=== PATIENT | male | born 1980 | race Caucasian/White ===

== ENCOUNTER → 2018-03-15 | Emergency (ER) | payer MEDICAID ==
[~2018-03-15] VITALS: Ht 167.6 cm; Wt 93.6 kg
[~2018-03-15] MED LIST: diphenhydrAMINE 50 mg/ml inj IV ONE; metoclopramide 5 mg/ml inj IV ONE; normal saline 1000ML IV soln IVB ONE
[2018-03-15 10:08] VITALS: BP 162/79
[2018-03-15 10:38] LABS: BASOPHILS # (AUTO) 0.1 X10'3 (0-0.2); BASOPHILS % (AUTO) 1.4 % (0-1); EOSINOPHILS # (AUTO) 0.1 X10'3 (0-0.9); EOSINOPHILS % (AUTO) 1.5 % (0-6); HEMATOCRIT 41.3 % (42.0-52.0); HEMOGLOBIN 13.9 g/dl (14.0-17.9); LYMPHOCYTES # (AUTO) 2.3 X10'3 (1.1-4.8); MEAN CORPUSCULAR HEMOGLOBIN 27.1 PG (27.0-31.0); MEAN CORPUSCULAR HGB CONC 33.6 % (33.0-36.5); MEAN CORPUSCULAR VOLUME 80.6 FL (78-98); MEAN PLATELET VOLUME 7.8 FL (7.4-10.4); MONOCYTES # (AUTO) 0.7 X10'3 (0-0.9); MONOCYTES % (AUTO) 10.7 % (2-12); NEUTROPHILS # (AUTO) 2.9 X10'3 (1.8-7.7); NEUTROPHILS % (AUTO) 48.4 % (42-75); PLATELET COUNT 212 X10'3 (140-440); RED BLOOD COUNT 5.12 X10'6 (4.70-6.10); RED CELL DISTRIBUTION WIDTH 14.6 % (11.5-14.5); WHITE BLOOD COUNT 6.1 X10'3 (4.5-11.0)
[2018-03-15 10:45] LABS: PROTHROMBIN TIME 10.1 SECONDS (9.0-12.0)
[2018-03-15 10:52] LABS: ALANINE AMINOTRANSFERASE 38 U/L (12-78); ALBUMIN 3.7 G/DL (3.4-5.0); ALKALINE PHOSPHATASE 64 IU/L (46-116); AMYLASE 73 U/L (25-115); ANION GAP 11 (8-16); ASPARTATE AMINO TRANSFERASE 21 U/L (10-37); BILIRUBIN,TOTAL 0.2 MG/DL (0.1-1.0); BLOOD UREA NITROGEN 9 MG/DL (7-18); BUN/CREATININE RATIO 7.5 (5.4-32.0); CALCIUM 8.3 MG/DL (8.5-10.1); CHLORIDE 109 MMOL/L (99-107); GLUCOSE 96 MG/DL (70-104); LIPASE 186 U/L (73-393); POTASSIUM 3.7 MMOL/L (3.5-5.1); SODIUM 144 MMOL/L (135-145); TOTAL CARBON DIOXIDE 23.6 MMOL/L (24-32); TOTAL PROTEIN 7.3 G/DL (6.4-8.2); eGFR 67 ML/MIN
== END | disposition left against medical advice (07) ==
LOC: ER 09:43
DX: R10.13 Epigastric pain (principal); R11.10 Vomiting, unspecified; J45.909 Unspecified asthma, uncomplicated; K21.9 Gastro-esophageal reflux disease without esophagitis
CPT/HCPCS: 36415; 80053; 82150; 83690; 85025; 85610; 99284; J7030

== ENCOUNTER 2025-06-18 12:38 | Inpatient (IN) | payer MEDICAID ==
[~2025-06-18] VITALS: Ht 167.6 cm; Wt 90.9 kg
--- NOTE | 2025-06-18 13:03 | Physician Documentation ---
History of Present Illness General Chief Complaint: Bloody Emesis Stated Complaint: GI ISSUES Time Seen by MD: 12:48 History of Present Illness Initial Comments The patient is a 44-year-old male transferred here from [facility] in [place] for GI bleeding. The patient lives in [place] and was visiting [place]. He had epigastric pain last night in induced vomiting by sticking his finger down his throat thinking this would help the pain. He vomited black material. He has also been having melena for the past day or two. The patient has had melena in the past and he has been having epigastric pain on and off for at least 20 years. He was told by providers that he needed an EGD but he never got this. He does take pantoprazole when he remembers to take it. He is also on amlodipine for blood pressure and ropinirole all for restless legs. He reports that he used to be a heavy drinker but now drinks only occasionally. He reports chronic anemia and was advised to take iron but he has not been taking it. He has had occasional coffee-ground and reddish vomitus over the years. Medication Reconciliation Allergies: Coded Allergies: No Known Allergies (Unverified , 01/08/16) Past Medical History Past Medical History: Asthma, GERD, Hernia Past Surgical History: noncontributory Other Past Family History: NONCONTRIBUTORY Alcohol Use: None Drug Use: none Lives In: Home Review of Systems ROS Constitutional: Denies chills, fatigue, fever, weight gain or weight loss. HEENT: Denies hearing loss, sinus pressure or visual changes. Respiratory: Denies cough, shortness of breath or wheezing. Cardiovascular: Denies chest pain, pain while walking (claudication), edema or palpitations. Gastrointestinal: Epigastric pain, coffee-ground vomitus and melena. Genitourinary: Denies painful urination (dysuria), excessive amount of urine (polyuria) or urinary frequency. Metabolic/Endocrine: Denies cold intolerance, heat intolerance, excessive thirst (polydipsia) or excessive hunger (polyphagia). Neurological: Denies dizziness, extremity numbness, extremity weakness, headaches, seizures or tremors. Psychiatric: Denies anxiety or depression. Integumentary: Denies breast discharge, breast lump, hives, mole change(s), rash or skin lesion. Musculoskeletal: Denies back pain, joint pain, joint swelling or neck pain. Hematologic: Denies easily bleeding, easily bruises, lymphedema or issues with blood clots. Immunologic: Denies food allergies or seasonal allergies. Physical Exam Physical Exam Vital Signs: Temperature: 98.0, Heart Rate: 75, Respiratory Rate: 15, BP: 111/80, Pulse Oximetry: 96, Weight: 90.910 Oxygen Flow Rate: 0 Physical Exam Physical Exam Vitals and nursing note reviewed. Constitutional: General: Patient is awake, alert, oriented x 4 in no acute distress and well appearing. Speech is clear and lucid. Appearance: Normal appearance. Patient is not ill-appearing, toxic-appearing or diaphoretic. HENT: Head: Normocephalic and atraumatic. Mouth/Throat: Mouth: Mucous membranes are moist. Pharynx: Oropharynx is clear. Eyes: General: No scleral icterus. Extraocular Movements: Extraocular movements intact. Pupils: Pupils are equal, round, and reactive to light. Neck: Supple, no Kernig or Brudzinski sign. Cardiovascular: Rate and Rhythm: Normal rate and regular rhythm. Heart sounds: No murmur heard. Pulmonary: Effort: No respiratory distress. Breath sounds: No wheezing, rhonchi or rales. Abdominal: General: There is no distension. Palpations: There is no fluid wave, hepatomegaly or mass. Tenderness: Epigastric tenderness without guarding or rebound. Musculoskeletal: General: No swelling or deformity. Skin: Coloration: Skin is not jaundiced. Findings: No erythema or rash. Neurological: Mental Status: Patient is alert. Progress Results/Orders Results/Orders Orders - ZOYA SCHUMACHER MD Drug Screen, Urine (06/18/25 12:56) Page Hospitalist (06/18/25 14:31) Completed Orders - ZOYA SCHUMACHER MD CMP (06/18/25 12:56) Cbc/Diff (06/18/25 12:56) Lipase (06/18/25 12:56) MG (06/18/25 12:56) Type And Screen (06/18/25 12:56) Pt Inr (06/18/25 12:56) Hs Troponin I W Calculations (06/18/25 12:56) Ethanol (06/18/25 12:56) Man Diff (06/18/25 13:12) Vital Signs 06/18/25 06/18/25 06/18/25 06/18/25 12:40 13:01 13:44 14:36 Temp 98.0 98.0 98.0 Pulse 75 104 68 Resp 15 16 15 B/P (MAP) 111/80 94/65 (75) 138/78 (98) Pulse Ox 96 99 97 O2 Flow Rate 0 0 0 Laboratory Tests Test 06/18/25 13:12 White Blood Count 6.6 Red Blood Count 4.29 L Hemoglobin 9.3 L Hematocrit 29.4 L Mean Corpuscular Volume 68.5 L Mean Corpuscular Hemoglobin 21.7 L Mean Corpuscular Hemoglobin Concent 31.7 L Red Cell Distribution Width 18.0 H Platelet Count 304 Mean Platelet Volume 7.5 Neutrophils (%) (Auto) 55.9 Lymphocytes (%) (Auto) 32.2 Monocytes (%) (Auto) 9.0 Eosinophils (%) (Auto) 1.7 Basophils (%) (Auto) 1.2 H Neutrophils # (Auto) 3.7 Lymphocytes # (Auto) 2.1 Monocytes # (Auto) 0.6 Eosinophils # (Auto) 0.1 Basophils # (Auto) 0.1 CBC Comment Differential Total Cells Counted 100 Neutrophils % (Manual) 56.0 Lymphocytes % (Manual) 34.0 Monocytes % (Manual) 8.0 Eosinophils % (Manual) 2.0 Platelet Estimate Normal Red Blood Cell Morphology Perf Polychromasia Few Hypochromasia 2+ Basophilic Stippling Anisocytosis 1+ Microcytosis 2+ Elliptocytes Prothrombin Time 10.7 INR International Normalized Ratio 1.0 Coagulation Comments Sodium Level 141 Potassium Level 5.1 Chloride Level 111 H Carbon Dioxide Level 23.9 L Anion Gap 6 L Blood Urea Nitrogen 33 H Creatinine 0.88 Estimated GFR/1.73 m2 > 90 BUN/Creatinine Ratio 37.5 H Glucose Level 102 Calcium Level 7.8 L Magnesium Level 2.8 H Total Bilirubin 0.3 Aspartate Amino Transf (AST/SGOT) 13 Alanine Aminotransferase (ALT/SGPT) 14 Alkaline Phosphatase 51 Troponin I High Sensitivity 7 Total Protein 6.5 Albumin 3.3 L Globulin 3.2 Albumin/Globulin Ratio 1.0 L Lipase 44 Chemistry Comments Ethyl Alcohol Level < 10 Medical Decision Making Findings This 44-year-old male is transferred here from [facility] with coffee-ground vomitus and melanotic stools since last night. His hemoglobin is 9.3. Vital signs are stable. I will get him admitted for further workup. Departure Disposition: ADMITTED INPATIENT Admitted to Inpatient Unit: to hospitalist Impression: Primary Impression: Hematemesis Condition: Stable Referrals: NO PRIMARY CARE PROVIDER (PCP) Signature Scribe Signature: . Attestation: . ZOYA SCHUMACHER MD Jun 18, 2025 13:03
[2025-06-18 13:34] LABS: MEAN PLATELET VOLUME 7.5 FL (7.4-10.4); RED CELL DISTRIBUTION WIDTH 18.0 % (11.5-14.5)
[2025-06-18 13:44] LABS: INR 1.0 INR
[2025-06-18 13:51] LABS: CREATININE 0.88 MG/DL (0.60-1.10); ETHANOL < 10 MG/DL (<10); TOTAL CARBON DIOXIDE 23.9 MMOL/L (24-32); eCRCL 95 ML/MIN; eGFR > 90 ML/MIN
[2025-06-18 14:32] LABS: EOSINOPHILS % (MANUAL) 2.0 % (0-6); LYMPHOCYTES % (MANUAL) 34.0 % (21-51); MONOCYTES % (MANUAL) 8.0 % (2-12); NEUTROPHILS % (MANUAL) 56.0 % (42-75)
[2025-06-18 14:33] LABS: PLATELET ESTIMATE NORMAL
[2025-06-18] MEDS ORDERED: potassium Cl 40MEQ/1/2NS 520ml 520 ML IV PRN (17:05)
[2025-06-18] MEDS ORDERED: magnesium sulf-water 2g/50mL 50 ML IV PRN (17:05)
[2025-06-18] MEDS ORDERED: mag hydrox/Alum hydrox/simeth 30ml oral suspension PO PRN (17:05)
[2025-06-18] MEDS ORDERED: magnesium sulf-water 4G/100mL 100 ML IV PRN (17:05)
[2025-06-18] MEDS ORDERED: potassium Cl 20 mEq SR tablet PO PRN ×2 (17:05)
[2025-06-18] MEDS ORDERED: magnesium hydroxide 30ml (MOM) UD suspension PO PRN (17:05)
[2025-06-18] MEDS ORDERED: ondansetron/PF 4mg/2ml inj IV PRN (17:05)
[2025-06-18] MEDS ORDERED: magnesium Cl slow-release 64mg tablet PO PRN (17:05)
--- NOTE | 2025-06-18 17:32 | HISTORY AND PHYSICAL-Residence ---
History & Physical Providers to CC Resident Creating Document: MAHI MADERA GREER, RES ~ History of Present Illness Reason for Admit\Complaint: Melena, coffee-ground emesis History of Present Illness A 44 years old male patient transferred from [facility] for evaluation of GI bleed. Patient reports that he has mild epigastric pain from yesterday evening and he induced vomiting by sticking his fingers down into his throat thinking that could relieve the pain. He had 1 episode of coffee ground colored vomiting. He also endorses that he had black tarry stools from the past 2 days. Patient reports that he has mild epigastric pain, black tarry stools, coffee-ground vomiting on and off for at least 20 years. Patient denies abdominal distention, heartburn, indigestion, acid reflux, nausea, constipation, diarrhea, dizziness, chest pain, syncope, shortness of breath. Patient never had EGD in the past. Allergies: Coded Allergies: No Known Allergies (Unverified , 01/08/16) Home Medications Home Medications Active Past Medical History Past Medical History GERD Restless leg syndrome Hypertension Past Surgical History Surgical History Comment No past surgical history Family History Family History: Patient reports no known family medical history. Past Social History Social History Comment Nonsmoker Patient was heavy drinker previously 10 years back, now he drinks beer occasionally like once in a month. His last drink was 1 glass of beer 2 days ago. Denies any recreational drug use Independent of ADLs. No primary care provider Alcohol Use: None Drug Use: None Lives In: Home ROS ROS Constitutional: No fever, chills, dizziness, weight gain or loss, night sweats Eyes: No pain, erythema, discharge, blurring of vision ENT: No sore throat, epistaxis, tinnitus Cardiovascular:No chest pain, palpitations, syncope, lower extremity edema, paroxysmal nocturnal dyspnea Respiratory: No Shortness of breath and cough, No hemoptysis. Gastrointestinal: Reports Epigastric pain, coffee-ground vomitus and melena. Normal appetite. No constipation,diarrhea, hematemesis, Musculoskeletal: No swelling or edema of extremities. Integumentary: No change in skin, hair, nails. No swelling, bruising, abrasions Neurologic: No weakness,No headache, neck pain, numbness or tingling of the extremities, Psychiatric: No delusions, depression, loss of interest in normal activity or change in sleep pattern, hallucinations, suicidal ideations Endocrine: No fatigue, no weakness. polydipsia, polyuria, change in appetite, heat or cold intolerance, sweating, dry skin Hematological: No bleeding, petechiae, bruising Allergies: No asthma or urticaria Exam Vitals: Vital Signs Date Time Temp Pulse Resp B/P (MAP) Pulse Ox O2 Delivery O2 Flow Rate FiO2 06/18/25 14:36 98.0 68 15 138/78 (98) 97 0 General: Awake , alert and oriented to time,place, person,not in distress HEENT: Atraumatic, normocephalic, PERRLA, EOMI, anicteric sclera ; pink conjunctiva, moist mucos membranes Neck: Trachea midline. Supple, normal range of motion, no JVD, no lymphadenopathy Chest and Respiratory: Equal breath sounds bilaterally, no tachypnea, wheezing, ronchi,rubs .Chest wall is symmetric and without deformity. Cardiac: S1, S2 heard,Regular rate and rhythm, no murmurs heard. Abdomen: Soft, mild epigastric tenderness, No guarding or rigidity, Wynne's sign negative. normal bowel sounds x4 quadrant, no hepatosplenomegaly MSK: Range of motion of all extremities are normal. There is no joint pain or joint swelling or joint erythema. There is no muscle pain or tenderness or swelling. Extremities: warm, well-perfused, No cyanosis, clubbing, 2+ pulses felt Neurological: Speech is clear, alert, and oriented x 4. No sensory or motor deficits. Cranial nerves II-XII intact. Skin: Warm and dry Psychiatry: Affect and mood are normal Diagnostic Data Last Recorded Lab Results: 06/18/25 1312 06/18/25 1312 Diagnostic Data: Laboratory Tests Test 06/18/25 13:12 Prothrombin Time 10.7 SECONDS (9.0-12.0) INR International Normalized Ratio 1.0 INR Coagulation Comments Advance Care Planning Advanced Care plannin - 30 Minutes Additional Plan Hematemesis and melena possibly due to upper GI bleed Microcytic hypochromic anemia History of GERD Patient had coffee-ground vomiting and melena last night. H&H are 9.3 and 29.4, MCV 68.5, MCH 31.7 Patient is hemodynamically stable Coagulation profile is within normal limits Plan: Transfuse PRBC if hemoglobin level is less than 7 Monitor H&H q.8h IV Zofran 4 mg p.r.n. Started on IV Protonix drip NPO after midnight Dr. Walton, the on-call wafer polishing worker was consulted. Awaiting recommendations. Hypertension Blood pressure are normal Follow up with outpatient management Restless legs syndrome Follow up with outpatient management Pending home med reconciliation Code status: Full code DVT prophylaxis : SCDs GI prophylaxis: IV Protonix Nutrition: Regular diet, NPO after midnight Line/tube: PIV Analgesia/sedation: Morphine p.r.n. Disposition: Patient was admitted for the evaluation of GI bleed. Dr. Walton, the on-call wafer polishing worker was consulted. Awaiting recommendations. Resident attestation The above note has been reviewed and supervised by a senior resident PGY2/PGY3 Patient was seen, examined and discussed with the attending physician Marlee Madera MD Internal Medicine Resident, PGY 1 I spent a total of 17 minutes on reviewing various resuscitative measures/ ACP with the patient at the time of admission. The patient has decided on a full code status. Date of Service: Jun 18, 2025 Billing Provider: KALYN LOFTON DO Common Visit Codes: [id number] INP/OBS CARE (HIGH) Secondary Visit Codes: [id number] CARE PLAN 30 MINUTES MAHI MADERA, RES Jun 18, 2025 17:32 KALYN LOFTON DO Jun 18, 2025 18:42
[2025-06-18 18:00] VITALS: BP_SYST 118; BP_SYST 127; BP_DIAS 79; BP_DIAS 85; PULSE 102; PULSE 97; RESP 18; RESP 22; TEMP 100.2; TEMP 98.5; O2SAT 93; O2SAT 96
[2025-06-18] MEDS ORDERED: morphine 4 MG/ML inj SYRINge IV PRN ×2 (18:08→18:25)
[2025-06-18 18:14] VITALS: RESP 18
[2025-06-18] MEDS: morphine 4 MG/ML inj SYRINge IV PRN ×2 (18:33→23:17)
[2025-06-18 19:15] LABS: MEAN PLATELET VOLUME 7.1 FL (7.4-10.4); RED CELL DISTRIBUTION WIDTH 17.9 % (11.5-14.5)
[2025-06-18 19:29] LABS: APTT 23 SECONDS (22-32); INR 1.0 INR
[2025-06-18 19:44] LABS: PHOSPHORUS 2.9 MG/DL (2.3-4.5)
[2025-06-18 19:47] LABS: PRO BRAIN NATRIURETIC PEPTIDE < 30 PG/ML (0-125)
[2025-06-18 20:00] VITALS: RESP 18; O2SAT 99
[2025-06-18] MEDS: K and/or MAG REPLACEMENT MC SCH (21:15)
[2025-06-18] MEDS: docusate sod 100mg capsule PO SCH (21:16)
[2025-06-18] MEDS: pantoprazole 40MG/NS 100ML BAG 100 ML IV SCH (21:19)
[2025-06-18 22:00] VITALS: BP 131/73; PULSE 74; RESP 18; TEMP 98.8; O2SAT 99
[2025-06-18] MEDS ORDERED: HYDROcodone/acetaminophen 10/325mg tab PO PRN (22:45)
[2025-06-19] VITALS (15 sets, daily range): BP systolic 104–136; BP diastolic 60–85; PULSE 16–81; RESP 9–20; TEMP 97.4–98.6; O2SAT 93–99
[2025-06-19 05:46] LABS: MEAN PLATELET VOLUME 7.8 FL (7.4-10.4); RED CELL DISTRIBUTION WIDTH 17.8 % (11.5-14.5)
[2025-06-19 06:05] LABS: CHOL/HDL RATIO 3.4 (0.00-4.99); CREATININE 0.92 MG/DL (0.60-1.10); LDL CHOLESTEROL 57 MG/DL (50-100); TOTAL CARBON DIOXIDE 24.1 MMOL/L (24-32); eCRCL 91 ML/MIN; eGFR 89 ML/MIN
[2025-06-19] MEDS ORDERED: ROPI0.2544 PO (08:00)
[2025-06-19] MEDS ORDERED: LIDOcaine 2% (20mg/ml) 5ml vial ONE ×2 (09:18→13:10)
[2025-06-19 10:09] LABS: LEUKOCYTE ESTERASE ,URINE NEGATIVE (Neg); NITRITES, URINE NEGATIVE (Neg); OCCULT BLOOD,URINE NEGATIVE (Neg)
[2025-06-19 10:12] LABS: UA COLLECTION TYPE NON-SPECIFIED
[2025-06-19 10:31] LABS: MEAN PLATELET VOLUME 7.3 FL (7.4-10.4); RED CELL DISTRIBUTION WIDTH 18.1 % (11.5-14.5)
[2025-06-19 10:36] LABS: URINE AMPHETAMINE SCREEN POSITIVE (Neg); URINE BARBITUATE SCREEN NEGATIVE (Neg); URINE BENZODIAZEPINES SCREEN NEGATIVE (Neg); URINE CANNABINOID SCREEN NEGATIVE (Neg); URINE COCAINE SCREEN NEGATIVE (Neg); URINE METHADONE SCREEN NEGATIVE (Neg); URINE OPIATE SCREEN POSITIVE (Neg); URINE PHENCYCLIDINE SCREEN NEGATIVE (Neg)
[2025-06-19] MEDS ORDERED: midazolam 1 mg/ML 2ml injection ONE (13:01)
[2025-06-19] MEDS ORDERED: fentaNYL/PF 50MCG/1 ML 2ML syringe ONE (13:01)
[2025-06-19] MEDS ORDERED: propofol inj 20 ML IV ONE (13:10)
--- NOTE | 2025-06-19 16:52 | PROGRESS NOTE- Residence ---
Progress Note - Resident Providers to CC Resident Creating Document: MAHI MADERA RES ~ Antibiotic Timeout Antibiotic Ordered?: No Subjective Patient was seen and examined at bedside. Patient complaints of numbness in both hands. Patient denies nausea, vomiting, abdominal distention, indigestion. No acute overnight symptoms noted. Patient underwent EGD today afternoon. Objective Vital Signs Date Time Temp Pulse Resp B/P (MAP) Pulse Ox O2 Delivery O2 Flow Rate FiO2 06/19/25 14:00 67 12 110/75 (87) 97 Room Air 0.0 06/19/25 13:19 98.2 Result Diagram: 06/19/25 1016 06/19/25 0440 Awake , alert and oriented to time,place, person,not in distress HEENT: Atraumatic, normocephalic, PERRLA, EOMI, anicteric sclera ; pink conjunctiva, moist mucos membranes Neck: Trachea midline. Supple, normal range of motion, no JVD, no lymphadenopathy Chest and Respiratory: Equal breath sounds bilaterally, no tachypnea, wheezing, ronchi,rubs .Chest wall is symmetric and without deformity. Cardiac: S1, S2 heard,Regular rate and rhythm, no murmurs heard. Abdomen: Soft, No tenderness, No guarding or rigidity, Wynne's sign negative. normal bowel sounds x4 quadrant, no hepatosplenomegaly MSK: Range of motion of all extremities are normal. There is no joint pain or joint swelling or joint erythema. There is no muscle pain or tenderness or swelling. Extremities: warm, well-perfused, No cyanosis, clubbing, 2+ pulses felt Neurological: Speech is clear, alert, and oriented x 4. No sensory or motor deficits. Cranial nerves II-XII intact. Sensation was intact to all dermatomes distal upper extremities bilaterally Skin: Warm and dry Psychiatry: Affect and mood are normal Coagulation Studies Laboratory Tests Test 06/18/25 19:05 Prothrombin Time 10.7 SECONDS (9.0-12.0) INR International Normalized Ratio 1.0 INR Activated Partial Thromboplast Time 23 SECONDS (22-32) Coagulation Comments Plan Plan Esophageal ulcer with stigmata of recent bleeding LA grade B reflux esophagitis Nonbleeding gastric ulcer Large hiatal hernia Microcytic hypochromic anemia History of GERD Patient had coffee-ground vomiting and melena last night. H&H are 9.3 and 29.4, MCV 68.5, MCH 31.7 Patient is hemodynamically stable Coagulation profile is within normal limits Plan: Transfuse PRBC if hemoglobin level is less than 7 Monitor H&H q.8h IV Zofran 4 mg p.r.n. Started on IV Protonix drip NPO after midnight Dr. Walton, the on-call commissioning engineer was consulted. Awaiting recommendations. 06/19/2025: -EGD showed: Large hiatal hernia LA grade B reflux esophagitis with no bleeding Esophageal ulcer with stigmata of recent bleeding. Nonbleeding gastric ulcer -continue IV Protonix 40 mg b.i.d. daily -hemoglobin dropped from 9.3 to 7.7 -transfuse PRBC if hemoglobin level is less than 7 -monitor H&H q.6h - Advised to avoid spicy foods Hypertension Blood pressure are normal Advised to Follow up with outpatient management Restless legs syndrome Continue home medication ropinirole Follow up with outpatient management Amphetamines and opioid use disorder Ordered Substance use navigator Absorption And Adsorption Engineer was consulted Patient was educated about risks of substance abuse Code status: Full code DVT prophylaxis : SCDs GI prophylaxis: IV Protonix Nutrition: Regular diet Line/tube: PIV Analgesia/sedation: Morphine p.r.n. Disposition: Patient underwent EGD which showed esophageal ulcer and nonbleeding duodenal ulcer. Continue medical management. Resident attestation The above note has been reviewed and supervised by a senior resident PGY2/PGY3 Patient was seen, examined and discussed with the attending physician Marlee Madera MD Internal Medicine Resident, PGY 1 Date of Service: Jun 19, 2025 Billing Provider: KALYN LOFTON DO Common Visit Codes: [id number] INP/OBS CARE(HIGH) MAHI MADERA, RES Jun 19, 2025 16:52 KALYN LOFTON DO Jun 19, 2025 18:29
[2025-06-19 17:07] LABS: MEAN PLATELET VOLUME 7.3 FL (7.4-10.4); RED CELL DISTRIBUTION WIDTH 17.6 % (11.5-14.5)
--- NOTE | 2025-06-20 07:26 | CONSULTATION ---
DATE OF CONSULTATION: 06/18/2025 DICTATING PHYSICIAN: Pravin Walton MD REASON FOR CONSULTATION: Coffee ground emesis and melena. HISTORY OF PRESENT ILLNESS: The patient is a 44-year-old, transferred to [facility] for evaluation of GI bleeding. He has been having some mild epigastric pain. He has had 1 episode of coffee ground vomiting. He has had black tarry stool for 2 days. He denies heartburn or acid reflux. He has never had an endoscopy in the past. He denies other etiologies including excessive aspirin or nonsteroidal anti-inflammatory. No anticoagulant or antiplatelet agents. PAST MEDICAL HISTORY: Positive for GERD, restless leg syndrome, and hypertension. PAST SURGICAL HISTORY: None. FAMILY HISTORY: Noncontributory. PERSONAL HISTORY: Noncontributory. REVIEW OF SYSTEMS: A 12-point review of systems, same as history of present illness. PHYSICAL EXAMINATION: GENERAL: He is alert and oriented. He appears to be in no apparent distress. VITAL SIGNS: Are normal. HEART AND LUNGS: Are normal. ABDOMEN: Soft, nontender. No masses or organomegaly. Bowel sounds are present. EXTREMITIES: Reveal no clubbing, cyanosis, or edema. NEUROLOGIC: Cranial nerves are within normal limits. Hematology exam reveals no anemia, ____. Echocardiogram within normal limits. IMPRESSION: A young man admitted with coffee ground emesis and melena. Etiologies include peptic ulcer disease. RECOMMENDATIONS: NPO after midnight and endoscopy tomorrow. The risks and benefits explained, understands and wishes to proceed. Pravin Walton MD TID: [id number] RECEIPT: [id number] MARVA/ALONSO
--- NOTE | 2025-06-20 15:17 | PATHOLOGY REPORT ---
[facility] [address] [place] [address] SURGICAL PATHOLOGY REPORT CaseNumber: [id number] Surgeon:Pravin Walton M.D. CLINICAL INFORMATION CLINICAL INFORMATION: Hematochezia, melena. DIAGNOSIS DIAGNOSIS: GASTRIC ANTRUM, BIOPSY - NO SIGNIFICANT INFLAMMATION, EDEMA, OR VASCULAR CONGESTION - NO INTESTINAL METAPLASIA BY PAS STAINING - NO DYSPLASIA OR MALIGNANCY - NO H. PYLORI ORGANISMS ARE HIGHLIGHTED BY IMMUNOHISTOCHEMISTRY MICROSCOPIC DESCRIPTION MICROSCOPIC DESCRIPTION: Reviewed is a single H&E-stained slide showing serial sections and levels of two fragments of gastric antral-type mucosa. There is no significant inflammation, edema, or vascular congestion. There is no intestinal metaplasia by PAS staining. There are no dysplastic or neoplastic features. Also, no H. pylori organisms are highlighted by immunohistochemistry. GROSS DESCRIPTION GROSS DESCRIPTION: Received in a container of formalin labeled with the patient's name, number, and "antrum BX" is a 0.4 x 0.1 x 0.1 cm piece of noyola tissue. The specimen is entirely submitted as A1. The time at which the specimen was removed was 1310. The time at which the specimen was placed in formalin was 1311. Electronically signed by: Shaq Steve M.D. 06/20/2025 2:45:00 PM
== END 2025-06-19 21:00 | disposition left against medical advice (07) | DRG 241 ==
LOC: ER 12:39 → ED HOLD 14:53 → SUR 3N 18:39
PROVIDERS: ADMIT Family Medicine; ATTEND Family Medicine
PROC: 0DB78ZX Excision of Stomach, Pylorus, Via Natural or Artificial Opening Endoscopic, Diagnostic (ICD-10-PCS; principal; 2025-06-19 12:52)
DX: K25.4 Chronic or unspecified gastric ulcer with hemorrhage (principal); K22.11 Ulcer of esophagus with bleeding; J45.909 Unspecified asthma, uncomplicated; D50.9 Iron deficiency anemia, unspecified; I10 Essential (primary) hypertension; K21.01 Gastro-esophageal reflux disease with esophagitis, with bleeding; K21.9 Gastro-esophageal reflux disease without esophagitis; G25.81 Restless legs syndrome; K44.9 Diaphragmatic hernia without obstruction or gangrene; Z53.29 Procedure and treatment not carried out because of patient's decision for other reasons
CPT/HCPCS: 36415; 43239; 80053; 80061; 80305; 80320; 81003; 82948; 83036; 83690; 83735; 83880; 84100; 84484; 85007; 85025; 85027; 85610; 85730; 86885; 86900; 86901; 87081; 96374; 99285; A6258; G0378; J2003; J2250; J2270; J2470; J2704; J3010; J7120